=== PATIENT | female | born 1975 | race Caucasian/White ===

== ENCOUNTER 2025-08-24 13:14 | Outpatient (CLI) | payer OTHER, MEDICAID ==
[2025-08-24 14:23] LABS: Hematocrit 47.2 % (36.0-46.0); Hemoglobin 16.1 g/dL (12.2-16.2); Mean Corpuscular Hemoglobin 31.6 pg (28.0-32.0); Mean Corpuscular Volume 92.3 fL (80.0-100.0); Nucleated Red Blood Cells % 0.1 %; Urine Protein, UAD Negative (Negative)
[2025-08-24 14:56] LABS: Alkaline Phosphatase 108 U/L (46-116); Anion Gap 12 (5-15); BUN/Creatinine Ratio 10.9 (10.0-20.0); Blood Urea Nitrogen 11 mg/dL (9-23); Calcium 9.8 mg/dL (8.7-10.4); Carbon Dioxide 25 mmol/L (20-31); Chloride 104 mmol/L (98-107); Glucose 87 mg/dL (74-106); Potassium 3.9 mmol/L (3.5-5.1); Sodium 141 mmol/L (136-145); Total Protein 7.8 g/dL (5.7-8.2)
[2025-08-24 14:57] LABS: Albumin 4.8 g/dL (3.2-4.8); Bilirubin, Total 0.4 mg/dL (0.2-1.0); HDL Cholesterol 54 mg/dL (40-59)
[2025-08-24 14:58] LABS: Alanine Aminotransferase 91 U/L (7-40); Cholesterol 201 mg/dL (< 200); Triglycerides 164 mg/dL (< 150)
== END 2025-08-24 17:00 | disposition home or self-care (01) ==
LOC: LAB 13:14
PROVIDERS: ATTEND Internal Medicine
DX: Z00.01 Encounter for general adult medical examination with abnormal findings (principal)
CPT/HCPCS: 36415; 80053; 80061; 81001; 83036; 84439; 84443; 85025

== ENCOUNTER 2025-09-04 15:23 | Outpatient (CLI) | payer OTHER, MEDICAID ==
[2025-09-04 16:21] LABS: Alanine Aminotransferase 63.0 U/L (7-40); Bilirubin, Total 0.3 mg/dL (0.2-1.0)
== END 2025-09-04 17:00 | disposition home or self-care (01) ==
LOC: LAB 15:23
PROVIDERS: ATTEND Internal Medicine
DX: E55.9 Vitamin D deficiency, unspecified (principal); R94.5 Abnormal results of liver function studies
CPT/HCPCS: 36415; 82247; 82306; 84450; 84460; 86704; 86706; 86708; 86803; 87340